=== PATIENT | female | born 1940 | race Caucasian/White ===

== ENCOUNTER → 2022-05-13 10:10 | Outpatient (CLI) | payer MEDICARE, SELFPAY ==
--- NOTE | 2022-05-13 10:17 | US_ITS ---
FINAL REPORT TECHNIQUE: Sonographic images of the pelvis were obtained transvaginally. CLINICAL HISTORY: post menopausal bleeding FINDINGS: The uterus is anteverted and anteflexed. It measures 6.0 x 5.2 x 2.4 cm. The endometrial stripe measures 2 mm. There are likely myometrial calcifications. The cervix is within normal limits. The right ovary is not visualized. The left ovary measures 1.6 x 1.3 x 1.1 cm. It is normal in appearance. Color imaging to the ovaries is within normal limits. There is no free fluid. IMPRESSION: Nonvisualized right ovary, otherwise normal sonographic appearance to the uterus and left ovary for age. Reviewed, Interpreted and Dictated by Barbara Ernst MD Transcribed by Lina Reyes Authenticated and [facility]
== END ==
PROVIDERS: PCP Nurse Practitioner Family; Visit Provider Obstetrics & Gynecology
DX: N95.0 Postmenopausal bleeding (principal)
CPT/HCPCS: 76830

== ENCOUNTER 2025-02-08 10:22 | Outpatient (CLI) | payer MEDICARE, SELFPAY ==
--- OUTSIDE RECORDS SUMMARY | 2025-02-08 10:26 | XMS_ITS | Referral Summary ---
Author Organization [employer] ([place], [place], [place], [place], [place]) Address [address] [place] [address] Care Team Providers Care Customs Appraiser Name Role Phone Glynn Lombardo MD Primary Care Provider [phone] Social History Tobacco Use Types Packs/Day Years Used Date Smoking Tobacco: Never Assessed Employment Answer Date Recorded Help finding and keeping a job Not on file 0 04/03/2023 Family and Community Support Answer Steven e Recorded Help with Day to Day Activities Not on file 04/03/2023 Feeling Lonely or Isolated Not on file 04/03 Educational Attainment Answer Date Ander rded Speak language other than Australian at home Not on file 04/03/2023 Want help with school or training Not on file 04/03/2023 Substance Use Answer Date Recorded Used prescription meds for non-medical reasons N ot on file 04/03/2023 Used illegal drugs past 12 months Not on file 04/03/2023 Comments Unknown Sex and Gender Information Value Date Recorded Sex Assigned at Female 09/10/2021 11:02 AM CDT Legal Sex Female 11:02 AM CDT Gender Identity Female 09/10/2021 11:02 AM CDT Sexual Orientation Not on file Plan of Treatment Upcoming Encounters Date Type Department Care Team (Late st Contact Info) Description 04/24/2025 3:00 PM EST Appointment [address] [place] [phone] Insurance [facility] MEDICARE ADVANTAGE Care Teams Customs Appraiser Relationship Specialty Start Date End Date Glynn Lombardo MD [address] [place] [address] PCP - General Family Medicine 04/19/24
--- OUTSIDE RECORDS SUMMARY | 2025-02-08 10:26 | XMS_ITS | Encounter Summary ---
[facility] Address [address] [place] [address] Care Team Providers Care Spragger Name Role Phone Glynn Lombardo MD Primary Care Provider [phone] Encounter Details Date Type Department Care Team (Late st Contact Info) Description 06/18/2015 Conversion Encounter [facility] HISTORICAL CONV [address] [place] [address] Interface, See Report Social History Tobacco Use Types Packs/Day Years Used Date Smoking Tobacco: Never Assessed Comments Unknown Sex and Gender Information Value Date Recorded Sex Assigned at Not on file Legal Sex Female 1:32 PM EDT Gender Identity Not on file Sexual Orientation Not on file documented as of this encounter Progress Notes * Interface, See Report - 06/18/2015 12:00 AM EDT Gynecologic Oncology [address] [place] [address] PHONE: [phone] FAX: [phone] Patient: BAHMAN CARLISLE. MR #: [id number] : 1940 Telephone Call 06/18/15 Called and relayed the excellent pathology results to the patient. I would like to see her back for a post-op visit in 4 weeks (she will call to schedule this). Offered a trial of vaginal estrogen in the interim. She declines, we can discuss this more at her post-opvisit. Electronically Signed By: Janna Cantu MD Date: 06/18/2015 Time: 1:02 PM cc: documented in this encounter Plan of Treatment Not on file documented as of this encounter Visit Diagnoses Not on filedocumented in this encounter Additional Health Concerns Infection Onset Date Last Indicated Resolved Time COVID Screen (preop/placement) 01/08/2020 01/08/2020 01/08/2020 9:37 PM EDT COVID Screen (preop/placement) 02/24/2020 02/24/2020 02/25/2020 1:07 PM EST documented as of this encounter Care Teams Spragger Relationship Specialty Start Date End Date Glynn Lombardo MD [address] [place] [address] PCP - General 07/23/15 documented as of this encounter
--- OUTSIDE RECORDS SUMMARY | 2025-02-08 10:26 | XMS_ITS | Clinical Summary ---
Author Organization [employer] ([place], [place], [place], [place], [place]) Address [address] [place] [address] Care Team Providers Care Fuel Injection Servicer Name Role Phone Glynn Lombardo MD Primary Care Provider [phone] Social History Tobacco Use Types Packs/Day Years [...] Date Ander rded Speak language other than Guamanian at home Not on file 04/03/2023 Want [...] Info) Description 04/24/2025 3:00 PM EST Appointment [address] [place] [phone] Health Maintenance Due Date Last Done Comments Medicare Initial AWV [id number] DXA SCAN 1940 Depression Screening (12+) 1951 Tobacco Cessation Counseling and Screening (12+) 1951 Pneumococcal 50+ years (1 of 1 - PCV) 08/04/1989 Shingles Vaccine (Zoster) (1 of 2) 08/04/1989 Respiratory Syncytial Virus (RSV) Adult or (1 - 1-dose 75+ series) 08/04/2014 Falls Risk Screening 03/16/2024 COVID-19 VACCINE (3 - 2024- season) 2024, 05/23/2020 Influenza Vaccine (#1) 2024 12/26/2015 DTAP/TDAP/TD VACCINES (2 - Td or Tdap) 06/12/2026 Insurance [employer] [place] [id number] [facility] MEDICARE ADVANTAGE Care Teams Fuel Injection Servicer Relationship Specialty Start Date End Date Glynn Lombardo MD [address] [place] [address] PCP - General Family Medicine 04/19/24
--- OUTSIDE RECORDS SUMMARY | 2025-02-08 10:26 | XMS_ITS | Clinical Summary ---
Author Organization [facility] Address [address] [id number] Care Team Providers Care Cloth Mercerizing Supervisor Name Role Phone Glynn Lombardo MD Primary Care Provider [phone] Social History Tobacco Use Types Packs/Day Years Used Date Smoking Tobacco: Never Comments Unknown Sex and Gender Information Value Date Recorded Sex Assigned at Not on file Legal Sex Female 6:15 PM EDT Gender Identity Not on file Sexual Orientation Not on file Last Filed Vital Signs Vital Sign Reading Time Taken Comments Blood Pressure - - Pulse - - Temperature - - Respiratory Rate - - Oxygen Saturation - - Inhaled Oxygen Concentration - - Weight 83.5 kg (183 lb 15.9 oz) 016 11:07 AM EST Height 170.2 cm (5' 7 ) 02/19/2016 11:0 7 AM EST Body Mass Index 28.82 02/19/2016 11:07 AM EST Plan of Treatment Upcoming Encounters Date Type Department Care Team ([facility] st Contact Info) Description 08/24/2025 1:30 PM EDT Ovarian Cancer Screening [facility] Gynecology [address] [place] [address] Health Maintenance Due Date Last Done Comments [facility]-Bone Density Scan 1940 [facility]-Depression Screening 1940 [facility]-Medicare Annual Wellness (AWV) 1940 [facility]-/Child/Adol SDOH Screenings 1940 [facility]- SDOH Screenings 08/04/1957 [facility]-Adult SDOH Screenings 08/04/1957 [facility]-Pneumococcal Vaccine: 50+ Years (1 of 1 - PCV) 08/04/1989 12/26/2015 [facility]-Zoster Vaccines (1 of 2) 08/04/1989 [facility]-RSV Vaccine: 60+ Years or (1 - 1-dose 75+ series) 08/04/2014 [id number] Vaccine (3 - season) 2024 01/11/2021, 05/23/2020 [facility]-Influenza Vaccine (#1) 2024 12/26/2015 [facility]-DTaP,Tdap,and Td Vaccines (2 - Td or Tdap) 06/12/2026 06/12/2016 HPV Vaccines Aged Out No longer eligi ble based on patient's age to complete this topic [facility]-HIB Vaccines Aged Out No longer e ligible based on patient's age to complete this topic [facility]-Hepatitis A Vaccines Aged Out No longer eligible based on patient's age to complete this topic [facility]-IPV Vaccines Aged Out No longer e ligible based on patient's age to complete this topic [facility]-Rotavirus Vaccines Aged Out No lo nger eligible based on patient's age to complete this topic Insurance [facility] MEDICARE Care Teams Cloth Mercerizing Supervisor Relationship Specialty Start Date End Date Glynn Lombardo MD [address] [place] [address] [address] [address] PCP - General 07/27/20
--- OUTSIDE RECORDS SUMMARY | 2025-02-08 10:26 | XMS_ITS | Encounter Summary ---
[facility] Address [address] [place] [address] Care Team Providers Care Conveyor Monitor Name Role Phone Glynn Lombardo MD Primary Care Provider [phone] Encounter Details Date Type Department Care Team (Late st Contact Info) Description 10/27/2013 External CPT II PRINCIPAL BIOSTATISTICIAN - [facility] Social History Tobacco Use Types Packs/Day Years Used Date Smoking Tobacco: Never Assessed Comments Unknown Sex and Gender Information Value Date Recorded Sex Assigned at Not on file Legal Sex Female 1:32 PM EDT Gender Identity Not on file Sexual Orientation Not on file documented as of this encounter Plan of Treatment Not on file documented as of this encounter Visit Diagnoses Not on filedocumented in this encounter Additional Health Concerns Infection Onset Date Last Indicated Resolved Time COVID Screen (preop/placement) 01/08/2020 01/08/2020 01/08/2020 9:37 PM EDT COVID Screen (preop/placement) 02/24/2020 02/24/2020 02/25/2020 1:07 PM EST documented as of this encounter Care Teams Conveyor Monitor Relationship Specialty Start Date End Date Glynn Lombardo MD [address] [place] [address] PCP - General 07/23/15 documented as of this encounter
--- OUTSIDE RECORDS SUMMARY | 2025-02-08 10:26 | XMS_ITS | Clinical Summary ---
[facility] Address [address] [place] [address] Care Team Providers Care Enrichment Teacher Name Role Phone Glynn Lombardo MD Primary Care Provider [phone] Allergies No known active allergies Medications Polyethylene Glycol 3350 powder 1 dose Daily As Needed. Active Multiple Vitamins-Minerals (PRESERVISION AREDS 2 PO) Take 1 tablet by mouth Daily. Active estradiol (ESTRACE) 0.1 MG/GM vaginal creamIndications:V aginal atrophy,History of postmenopausal bleeding Insert one applicatorful per vagina twice a week. 42.5 g 2 01/22/20 17 Active Additional Information Patient taking differently: 2 g Vaginal Every 30 Days, Insert one applicatorful per vagina every 6 weeks., Informant: Medication Bottle, Reported on 03/27/2020 acetaminophen (TYLENOL) 325 MG tablet Take 650 mg by mouth Every 6 (Six) Hours As Needed for Mild Pain . Active ibuprofen (ADVIL,MOTRIN) 200 MG tablet Take 1 tablet by mouth Every 6 (Six) Hours As Needed for Mild Pain . Must take an hour after aspirin if needed. 02/29/20 20 Active docusate sodium (Colace) 100 MG capsule Take 1 capsule by mouth 2 (Two) Times a Day. 60 capsule 02/29/20 20 Active aspirin 325 MG tablet Take 1 tablet by mouth Daily. 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 12/23/2018 Leukocytosis, likely reactive 12/23/2018 Right hip pain 12/22/2018 Acute blood loss anemia, 1 unit PRBC 08/27 Thrombocytopenia 08/27/2017 Pancytopenia 08/25/2017 right hip trochanteric nailing 08/25/17 8 Acute postoperative pain 08/25/2017 Closed right hip fracture 08/24/2017 Vaginal atrophy 09/05/2015 History of postmenopausal bleeding 08/12/2015 Family History Medical History Relation Name Comments Ovarian cancer Mother Breast cancer Sister Relation Name Status Comments Mother Sister Social History Tobacco Use Types Packs/Day Years Used Date Smoking Tobacco: Never Smokeless Tobacco: Never Alcohol Use Standard Drinks/Week Comments No 0 (1 standard drink = 0.6 oz pur e alcohol) Abuse Screen Answer Date Recorded Unsafe at Home or Work/School Not on file Feels Threatened by Someone? Not on file 11/2022 Does Anyone Keep You from Co ntacting Others or Doint Things Outside the Home? Not on file 12/22/2022 Physical Sign of Abuse Present Not on file 1 Housing Stability Answer Date Recorded Current Living Arrangements Not on file 11/2022 Potentially Unsafe Housing Conditions Not on salbador e 12/22/2022 Family and Community Support Answer Steven e Recorded Help with Day-to-Day Activities Not on file 12/22/2022 Lonely or Isolated Not on file 12/22/2022 Employment Answer Date Recorded Do you want help finding or keeping work or a kishore b? Not on file 12/22/2022 Disabilities Answer Date Recorded Concentrating, Remembering, or Making Decisions Difficulty Not on file 12/22/2022 Doing Errands Independently Difficulty Not on fi le 12/22/2022 Education Answer Date Recorded Help with school or training? Not on file Preferred Language Not on file 12/22/2022 Comments No Sex and Gender Information Value Date Recorded Sex Assigned at Not on file Legal Sex Female 1:32 PM EDT Gender Identity Not on file Sexual Orientation Not on file Occupation Industry Job Start Date Job End Date retired Not on file Not on file Not on file Last Filed Vital Signs Vital Sign Reading Time Taken Comments Blood Pressure 140/70 03/27/2020 7:50 PM EST Pulse 80 03/27/2020 7:50 PM EST Temperature 36.6 C (97.8 F) 03/27/2020 4:07 PM EST Respiratory Rate 15 03/27/2020 5:56 PM EST Oxygen Saturation 99% 03/27/2020 7:50 PM EST Inhaled Oxygen Concentration - - Weight 83.9 kg (185 lb) 03/27/2020 4:03 PM EST Height 167.6 cm (5' 6 ) 03/27/2020 4:03 PM EST Body Mass Index 29.86 03/27/2020 4:03 PM EST Plan of Treatment Health Maintenance Due Date Last Done Comments DXA SCAN 1940 Pneumococcal Vaccine 50+ (1 of 1 - PCV) 08/04/1989 1 ZOSTER VACCINE (1 of 2) 08/04/1989 RSV Vaccine - Adults (1 - 1-dose 75+ series) 5 ANNUAL PHYSICAL 01/21/2017 INFLUENZA VACCINE 10/14/2024 12/26/2015 COVID-19 Vaccine (1 - season) 2024 TDAP/TD VACCINES (2 - Td or Tdap) 06/12/2026 017 Medical Devices Implanted Type Area [employer] Supervisor Device Identifier Shelf Expiration Date Model / Serial / Lot Nail Fem Tfn Adv Prox 130d [id number] Rt Strl - [id number] Implanted:Qty : 1 on 08/24/2017 by Richmond Piedra MD at [facility] Implant Right: Trochanter DEPUY SYNTHES [id number] / / Bld Fem Fix Leda Tfn Adv 110mm Strl - [id number] Implanted:Qty : 1 on 08/24/2017 by Richmond Piedra MD at [facility] Implant Right: Trochanter DEPUY SYNTHES [id number] / / Scrw Lk Strdrv Ti 5x54mm Strl - [id number] Implanted:Qty : 1 on 08/24/2017 by Richmond Piedra MD at [facility] Implant Right: Trochanter DEPUY SYNTHES [id number] / / Scrw Perf Tfn Adv Ti 10.5x95mm Strl - [id number] Implanted:Qty : 1 on 12/22/2018 by Richmond Piedra MD at [facility] Implant DEPUY SYNTHES 08/13/2028 [id number] / / [id number] Liner Acet R3 Xlpe 20d 30d65bp - [id number] Implanted:Qty : 1 on 02/27/2020 by Richmond Piedra MD at [facility] Implant Right: Hip SHABAZZ AND NEPHEW 09/06/2028 [id number] / / [id number] Stem Fem/Hip Rev Redapt Slvls Std Offst Sz18 190mm - [id number] Implanted:Qty : 1 on 02/27/2020 by Richmond Piedra MD at [facility] Implant Right: Hip SH[employer]ZZ [employer] NEPHEW 06/28/2026 [id number] / / [id number] Hd Fem/Hip Oxinium Tpr 02/26 36mm Min3 - [id number] Implanted:Qty : 1 on 02/27/2020 by Richmond Piedra MD at [facility] Implant Right: Hip SH[employer]ZZ [employer] NEPHEW 08/23/2029 [id number] / / [id number] Sut Contrl Tiss Stratafix Symm Pds Plus Ru[address] Ct-1 45cm - [id number] Implanted:Qty : 1 on 02/27/2020 by Richmond Piedra MD at [facility] Implant Right: Hip ETHICON DIV OF J AND J 05/13/2021 [id number] / / [id number] Totl Hip Guanako Shabazz Nephew - [id number] Implanted:Qty : 1 on 02/27/2020 by Richmond Piedra MD at [facility] Implant Right: Hip SHABAZZ AND NEPHEW CAPHIPTOTA [id number] / / Shll Acet R3 3h Std 54mm - [id number] Implanted:Qty : 1 on 02/27/2020 by Richmond Piedra MD at [facility] Implant Right: Hip SHABAZZ [employer] NEPHEW 10/31/2029 [id number] / / [id number] Scrw Sph Hd Reflection 6.5x20mm - [id number] Implanted:Qty : 1 on 02/27/2020 by Richmond Piedra MD at [facility] Implant Right: Hip SH[employer]ZZ [employer] NEPHEW 09/15/2029 [id number] / / [id number] Scrw Sph Hd Reflection 6.5x25mm - [id number] Implanted:Qty : 1 on 02/27/2020 by Richmond Piedra MD at [facility] Implant Right: Hip SH[employer]ZZ [employer] NEPHEW 09/15/2029 [id number] / / [id number] Scrw Sph Hd Reflection 6.5x25mm - [id number] Implanted:Qty : 1 on 02/27/2020 by Richmond Piedra MD at [facility] Implant Right: Hip SHABAZZ [employer] NEPHEW 10/05/2029 [id number] / / [id number] Bone Filler Void Cerament 10ml - [id number] Implanted:Qty : 1 on 02/27/2020 by Richmond Piedra MD at [facility] Implant Right: Hip BONE SUPPORT 04/14/2023 [id number] / / [id number] Insurance [address] [place] [address] [facility] MEDICARE REPLACE Advance Directives Documents on File Type Date Recorded Patient Fire Pilot Expl anation LIVING WILL - SCAN 12/09/2018 9:44 AM RC NG WILL 03/28/1997 * CPR (Attempt to Resuscitate) (Latest Code Status on File) Date Activated Date Inactivated Comments 02/27/2020 9:33 PM 02/29/2020 3:33 PM Question Answer Comments Code Status (Patient has no pulse and is not breathing): CPR (Attempt to Resuscitate) Medical Interventions (Patie nt has pulse or is breathing): Full * CPR (Attempt to Resuscitate) Date Activated Date Inactivated Comments 12/22/2018 4:36 PM 12/23/2018 5:36 PM Question Answer Comments Code Status (Patient has no pulse and is not breathing): CPR (Attempt to Resuscitate) Medical Interventions (Patie nt has pulse or is breathing): Full * Full Code Date Activated Date Inactivated Comments 08/24/2017 7:08 PM 08/27/2017 7:29 PM Healthcare Agents on File Name Relationship Healthcare Agent Relationshi p Communication Rj Carlisle Son Health Care Surrogate Mark Carlisle Spouse Health Care Surrogate Care Teams Enrichment Teacher Relationship Specialty Start Date End Date Glynn Lombardo MD [address] [place] [address] PCP - General 07/23/15
--- NOTE | 2025-02-08 10:35 | XR_ITS ---
FINAL REPORT CLINICAL HISTORY: chest congestion crud since thursday FINDINGS: PA and lateral views of the chest are obtained. There is no prior exam for comparison. The cardiac and mediastinal silhouettes are within normal limits. There is underlying emphysema. The lungs are otherwise clear. There is no pleural effusion, pneumothorax, or acute osseous abnormality. IMPRESSION: No radiographic evidence of acute cardiac or pulmonary disease. Reviewed, Interpreted and Dictated by Barbara Ernst MD Transcribed by Minerva Pisano Authenticated and [facility]
== END 2025-02-08 23:59 | disposition home or self-care (01) ==
LOC: RAD 10:24
PROVIDERS: PCP Family Medicine; Visit Provider Nurse Practitioner
DX: R09.89 Other specified symptoms and signs involving the circulatory and respiratory systems (principal)
CPT/HCPCS: 71046